=== PATIENT | female | born 1960 | race Two or more races ===

== ENCOUNTER 2025-03-15 08:32 | Emergency (ER) | payer OTHER ==
[~2025-03-15] VITALS: Ht 154.9 cm; Wt 62.6 kg
[2025-03-15 08:49] VITALS: BP 160/80; O2SAT 99
[2025-03-15] MEDS ORDERED: TRAMADOL HCL 50 MG TABLET PO ONE (09:15)
[2025-03-15] MEDS ORDERED: NORFLEX100MG PO (11:24)
== END 2025-03-15 12:02 | disposition left against medical advice (07) ==
LOC: ER 08:32 → EMR PED 08:55 → ER 12:02
DX: M79.642 Pain in left hand (principal)